=== PATIENT | male | born 1975 ===

== ENCOUNTER 2021-12-18 06:11 | Day surgery (SDC) | payer OTHER ==
[~2021-12-18 06:11] MED LIST: LISINOPRIL10 MG PO
[2021-12-18] MEDS ORDERED: RECTICARE30 GM TOP (08:20)
[2021-12-18] MEDS ORDERED: PERCOCET 5-3251 EACH PO (08:20)
== END 2021-12-18 11:35 | disposition home or self-care (01) ==
LOC: CIR.AMB 06:11
PROVIDERS: ATTEND Surgery
DX: K60.3 Anal fistula (principal)

== ENCOUNTER 2022-03-29 06:00 | Day surgery (SDC) | payer OTHER ==
[~2022-03-29] VITALS: Ht 180.3 cm; Wt 147.9 kg
[~2022-03-29 06:00] MED LIST changes: +PERCOCET 5-3251 EACH PO; +RECTICARE30 GM TOP; +TRULICITY0.75 MG/0.
[2022-03-29] MEDS ORDERED: RECTICARE30 GM TOP (08:23)
[2022-03-29] MEDS ORDERED: PERCOCET 5-3251 EACH PO (08:23)
== END 2022-03-29 12:30 | disposition home or self-care (01) ==
LOC: CIR.AMB 06:00
PROVIDERS: ATTEND Surgery
DX: K60.3 Anal fistula (principal); Z20.822 Contact with and (suspected) exposure to COVID-19; Z88.2 Allergy status to sulfonamides; I10 Essential (primary) hypertension; G47.33 Obstructive sleep apnea (adult) (pediatric); Z99.89 Dependence on other enabling machines and devices; K21.9 Gastro-esophageal reflux disease without esophagitis